=== PATIENT | male | born 1990 | race Caucasian/White ===

== ENCOUNTER 2018-07-01 07:42 | Emergency (ER) | payer MEDICAID ==
[~2018-07-01] VITALS: Ht 180.3 cm; Wt 74.8 kg
[2018-07-01 07:50] VITALS: BP 126/79
--- NOTE | 2018-07-01 07:50 | NUR ---
ED Nurse Note: PT WALKED IN TO ER TODAY FROM HOME. AOX4. PT C/O NASAL CONGESTION AND COUGH X 4 DAYS. PT DENIES FEVER OR PAIN. LUNG SOUNDS CLEAR IN ALL LOBES. NO COUGH PRESENT AT BEDSIDE. NO SIGNS OF RESPIRATORY DISTRESS.
[2018-07-01] MEDS ORDERED: AUGMENTIN 875-1 EAC1 ORAL (08:14)
--- NOTE | 2018-07-01 08:14 | Emergency Room Report ---
History of Present Illness General Chief Complaint: Upper Respiratory Illness Source: Patient Present Illness HPI This patient states that he has had congestion and sore throat for the past 2 weeks. He states that he has been taking [id number]-bpf-ejpyrtg cold medications. States that over the past 4 days he has had noted more congestion and thick yellow nasal discharge. He states he feels a pressure sensation in his face and ears. He denies headache or neck pain. He denies change in voice. He denies fever or chills. He denies nausea or vomiting. He denies blurry vision. He denies chest pain or shortness of breath. He states that he is not really had a cough. He has no other complaints. Allergies: Coded Allergies: No Known Allergies (Unverified , 07/01/18) Patient History Past Medical History: see triage record, psych hx - Anxiety Social History: Denies: smoking, alcohol use, drug use Reviewed Nursing Documentation: PMH: Agreed; PSxH: Agreed Nursing Documentation-PMH Past Medical History: No Stated History Review of Systems All Other Systems: negative except mentioned in HPI Physical Exam Vital Signs Date Time Temp Pulse Resp B/P (MAP) Pulse Ox O2 Delivery O2 Flow Rate FiO2 07/01/18 07:46 97.7 70 20 130/83 98 Room Air Sp02 EP Interpretation: reviewed, normal General Appearance: no apparent distress, alert, GCS 15, non-toxic Head: normocephalic, atraumatic Eyes: bilateral eye normal inspection, bilateral eye PERRL ENT: hearing grossly normal, normal pharynx, no angioedema, normal voice Neck: full range of motion, supple/symm/no masses Respiratory: chest non-tender, lungs clear, normal breath sounds, no respiratory distress, no retraction, no accessory muscle use, speaking full sentences Cardiovascular #1: regular rate, rhythm, no edema Gastrointestinal: normal bowel sounds, non tender, soft, non-distended, no guarding, no rebound Rectal: deferred Musculoskeletal: back normal, gait/station normal, normal range of motion, non- tender Neurologic: alert, oriented x3, responsive, motor strength/tone normal, sensory intact, speech normal Psychiatric: judgement/insight normal, memory normal, mood/affect normal, no suicidal/homicidal ideation Skin: normal color, no rash, warm/dry, well hydrated Medical Decision Making Diagnostic Impression: Primary Impression: Sinusitis ER Course This patient has a clinical presentation consistent with sinusitis. There are no red flags on physical exam that would make me concerned for meningitis or other complication of sinusitis. Patient overall is nontoxic. The patient was educated on nasal irrigation and [id number] decongestants. This patient has had 2 weeks of symptoms and has worsening sinus pressure and thick discharge , therefore I will place the patient on a course of antibiotics as likely this has become bacterial. The patient is given close return precautions and followup instructions. Last Vital Signs Date Time Temp Pulse Resp B/P (MAP) Pulse Ox O2 Delivery O2 Flow Rate FiO2 07/01/18 07:50 68 18 Room Air 07/01/18 07:50 98.2 126/79 98 Status: improved Disposition: HOME, SELF-CARE Condition: Improved Sailaja Pelletier DO Jul 01, 2018 08:14
[2018-07-01 08:30] VITALS: BP 139/82
--- NOTE | 2018-07-01 08:32 | NUR ---
ED Nurse Note: PT LAYING PEACEFULLY IN BED IN NAD. AOX4. PRESCRIPTION AND DISCHARGE PAPERWORK EXPLAINED TO PT. PT VERBALIZES UNDERSTANDING AND DENIES ANY QUESTIONS AT THIS TIME. PRESCRIPTION AND DISCHARGE PAPERWORK GIVEN TO PT AND ID WRISTBAND REMOVED. PT WALKED OUT OF ER WITH STEADY GAIT AND ALL BELONGINGS.
== END 2018-07-01 08:30 | disposition home or self-care (01) ==
LOC: EMR 08:15
DX: J32.9 Chronic sinusitis, unspecified (principal); F41.9 Anxiety disorder, unspecified
CPT/HCPCS: 99282